=== PATIENT | female | born 1965 | race Caucasian/White ===

== ENCOUNTER → 2018-11-26 | Emergency (ER) | payer MEDICARE, OTHER ==
[~2018-11-26] MED LIST: CIPROFLOXACIN HCL 500 MG TABLET PO ONE
[2018-12-01 09:59] LABS: APPEARANCE,URINE CLEAR (CLEAR); COLOR,URINE YELLOW (YELLOW); OCCULT BLOOD,URINE 3+ (NEGATIVE)
== END ==
LOC: EDBD → ED 20:23
DX: N30.90 Cystitis, unspecified without hematuria (principal)
CPT/HCPCS: 81002; 99282; 99283

== ENCOUNTER 2019-01-24 14:40 | Emergency (ER) | payer OTHER ==
--- NOTE | 2019-01-24 15:04 | ED Physician Documentation ---
General Adult - HISTORIAN Historian: patient - HPI Stated Complaint: cough, congestion and sore throat x 1 week Chief Complaint: Cough/ Upper Respiratory Onset: days ago (7) Timing: still present Severity: mild Further Comments: yes (She states she has had chest and head congestion x 1 week. She is not sure of fever. She has had Mucenix over the counter with mild relief some increased chest congestion and she wants someone to listen to her lungs due to the time she was once on a ventilator. She has a history of TBI. Denies any shortness of air.) - ROS CONST: fever, recent illness EYES/ENT: none CVS/RESP: cough. denies: chest pain, shortness of breath GI/: none MS/SKIN/LYMPH: none NEURO/PSYCH: denies: headache - PAST HX Past History: other (TBI ) Immunizations: UTD Allergies/Adverse Reactions: Allergies Allergy/AdvReac Type Severity Reaction Status Date / Time No Known Allergies Allergy Verified 01/24/19 14:58 - SOCIAL HX Smoking History: non-smoker Alcohol Use: none Drug Use: none - FAMILY HX Family History: No - REVIEWED ASSESSMENTS Nursing Assessment Reviewed: Yes Vitals Reviewed: Yes General Adult Physical Exam - PHYSICAL EXAM GENERAL APPEARANCE: no distress EENT: eye inspection normal, no signs of dehydration, RASHIDA, TM's nml, other (posterior pharynx red ) NECK: normal inspection RESPIRATORY: no resp distress, chest non-tender, breath sounds normal CVS: reg rate & rhythm, heart sounds normal ABDOMEN: soft, normal bowel sounds, no distension BACK: normal inspection SKIN: warm/dry, normal color EXTREMITIES: non-tender, normal range of motion, no evidence of injury NEURO: oriented X3 Discharge Clincal Impression: URI (upper respiratory infection) Qualifiers: URI type: unspecified URI Qualified Code(s): J06.9 - Acute upper respiratory infection, unspecified Referrals: CHAD ORTA MD [Primary Care Provider] - 2 Days Comments: 1. Continue OTC meds as needed for symptom relief 2. Follow up with PCP In 2-4 days 3. Return to ER for any increasing concerns Condition: Stable Disposition: 01 HOME, SELF-CARE Decision to Admit: NO Date of Decison to Admit: 01/24/19 Decision Time: 15:23
[2019-01-24 15:29] VITALS: BP 152/74
== END 2019-01-24 15:21 | disposition home or self-care (01) ==
LOC: ED 14:40
DX: J06.9 Acute upper respiratory infection, unspecified (principal)
CPT/HCPCS: 87070; 87880; 99282; 99283

== ENCOUNTER 2019-04-11 13:13 | Emergency (ER) | payer OTHER ==
[2019-04-11 13:36] VITALS: BP 133/80
--- NOTE | 2019-04-11 13:37 | ED Physician Documentation ---
Female Urogenital Problems - HISTORIAN Historian: patient - HPI Stated Complaint: painful urination Chief Complaint: Female Urogenital Problems Additional Information: Patient presents to ED with a 3 day history of dysuria, urinary frequency. Patient denies fever, chills or flank pain. Onset: days ago (3) Severity: moderate - Associated Symptoms Urinary Symptoms: frequent urination, discomfort w/ urination - ROS CONST: denies: fever, chills GI/: denies: nausea CVS/RESP: denies: chest pain, shortness of breath EYES/ENT: none NEURO/PSYCH: denies: headache MS/SKIN/LYMPH: denies: joint pain - PAST HX Past History: other (TBI, spine fracture) Other History: none Surgeries/Procedures: none Allergies/Adverse Reactions: Allergies Allergy/AdvReac Type Severity Reaction Status Date / Time No Known Allergies Allergy Verified 04/11/19 13:30 Home Medications: Ambulatory Orders Medication Instructions Recorded Atorvastatin Calcium 40 mg PO DAILY 01/24/19 Celecoxib 100 mg PO BID 01/24/19 Esomeprazole Magnesium 20 mg PO DAILY 01/24/19 Gabapentin 300 mg PO TID 01/24/19 Levothyroxine Sodium 100 mcg PO DAILY 01/24/19 Sertraline HCl [Zoloft] 100 mg PO BID 01/24/19 Amoxicillin/Potassium Clav 1 each PO Q12 #10 tablet 04/11/19 [Augmentin 875-125 Tablet] Lamotrigine [Lamictal] 25 mg PO BID 04/11/19 - SOCIAL HX Smoking History: non-smoker Alcohol Use: none Drug Use: none - FAMILY HX Family History: none - VITAL SIGNS Vital Signs: Vital Signs Temp Pulse Resp BP Pulse Ox 96.8 F L 70 24 133/80 97 04/11/19 13:20 04/11/19 13:20 04/11/19 13:20 04/11/19 13:20 04/11/19 13:20 - REVIEWED ASSESSMENTS Nursing Assessment Reviewed: Yes Vitals Reviewed: Yes Progress - Results/Orders Results/Orders: UA - tracek blood, nitrite neg, leukocyte neg. - Progress Progress: 1346 Discussed UA results with patient and needed to rule out kidney stone. Patient states she sees her PCP on Apr 18 and will have further testing done at that time. Patient does not want CT scan done here. ED Results Lab/Radiology - Orders Orders: ED Orders Category Date Time Status UA W/MICRO IF INDICATED Routine Lab 04/11/19 13:35 Ordered Female Urogenital Problems - EXAM General Appearance: no acute distress, alert EENT: RASHIDA Respiratory: no resp. distress, breath sounds nml CVS: reg rate & rhythm, heart sounds normal Abdomen: soft, non-tender, no distention, nml bowel sounds Back: non-tender. No: CVA tenderness Skin: color nml, no rash, warm,dry Extremities: non-tender, no edema Neuro: oriented X3, motor nml, mood/affect nml Discharge Clincal Impression: Urinary symptom or sign Prescriptions: Amoxicillin/Potassium Clav [Augmentin 875-125 Tablet] 1 each PO Q12 #10 tablet Referrals: CHAD ORTA MD [Primary Care Provider] - 2 Days Additional Instructions: 1. Take antibiotics until gone 2. Follow up with PCP on Apr 18 as already scheduled[address] Recommend CT scan to rule out kidney stone 3. Drink plenty of fluids. Avoid caffeine, energy drinks, and alcohol 4. Tylenol as needed for pain, fever. 5. Return to ER for new or worsening symptoms Condition: Stable Disposition: 01 HOME, SELF-CARE Decision to Admit: NO Date of Decison to Admit: 04/11/19 Decision Time: 14:06
[2019-04-11 13:58] LABS: APPEARANCE,URINE CLEAR (CLEAR); COLOR,URINE YELLOW (YELLOW); OCCULT BLOOD,URINE TRACE-LYSED (NEGATIVE); PH URINE 5.5 (5.0 - 8.0); UROBILINOGEN URINE 0.2 Eu (0.2-1.0)
== END 2019-04-11 14:12 | disposition home or self-care (01) ==
LOC: ED 13:13
DX: R39.89 Other symptoms and signs involving the genitourinary system (principal)
CPT/HCPCS: 81002; 99281; 99283